=== PATIENT | male | born 1990 | race Caucasian/White ===

== ENCOUNTER 2021-12-31 12:05 | Emergency (ER) | payer SELFPAY ==
[~2021-12-31] VITALS: Ht 165.1 cm; Wt 70.0 kg
[2021-12-31] MEDS ORDERED: IBUPROFEN 400MG TABLET PO ONE (13:45)
[2021-12-31] MEDS ORDERED: ACETAMINOPHEN 325MG TABLET PO ONE (13:45)
[2021-12-31 17:18] VITALS: BP 120/80
== END 2021-12-31 17:35 | disposition home or self-care (01) ==
LOC: ER 12:05 → EDBD 12:05 → ER 17:35
DX: S00.81XA Abrasion of other part of head, initial encounter (principal); R07.89 Other chest pain; V18.0XXA Pedal cycle driver injured in noncollision transport accident in nontraffic accident, initial encounter; Y93.55 Activity, bike riding; Y92.488 Other paved roadways as the place of occurrence of the external cause
CPT/HCPCS: 71101; 93005; 99283